=== PATIENT | male | born 1980 | race Caucasian/White ===

== ENCOUNTER 2024-09-02 20:00 | Emergency (ER) | payer OTHER ==
[~2024-09-02] VITALS: Ht 170.2 cm; Wt 61.2 kg
[2024-09-02] MEDS ORDERED: CEFTRIAXONE /D5W 50ML IVPB **ER PYXIS IV ONE (23:05)
[2024-09-02 23:17] LABS: BASOPHILS # (AUTO) 0.1 K/UL (0.0-0.2); BASOPHILS % (AUTO) 0.6 % (0.0-2.0); EOSINOPHILS # (AUTO) 0.2 K/uL (0.0-0.7); EOSINOPHILS % (AUTO) 1.6 % (0.0-7.0); HEMATOCRIT 44.1 % (36.7-47.1); LYMPHOCYTES # (AUTO) 1.8 K/uL (0.8-4.8); LYMPHOCYTES % (AUTO) 13.7 % (20.5-51.5); MEAN CORPUSCULAR HEMOGLOBIN 31.1 uug (23.8-33.4); MEAN CORPUSCULAR HGB CONC 34 g/dL (32.5-36.3); MEAN CORPUSCULAR VOLUME 91.6 fL (73.0-96.2); MONOCYTES % (AUTO) 7.5 % (0.0-11.0); NEUTROPHILS # (AUTO) 9.9 K/uL (1.8-8.9); NEUTROPHILS % (AUTO) 76.6 % (38.5-71.5); PLATELET COUNT (AUTO) 203 K/uL (152-348); RED BLOOD CELL COUNT(AUTO) 4.81 MIL/uL (4.06-5.63); RED CELL DISTRIBUTION WIDTH 14.6 % (12.1-16.2); WHITE BLOOD COUNT (AUTO) 12.9 K/uL (3.6-10.2)
[2024-09-02] MEDS: CEFTRIAXONE 1 G in IV DEXTROSE 5% 50 ML IV ONE (23:18)
[2024-09-02 23:23] LABS: DIFFERENTIAL COMMENT 1
[2024-09-02 23:25] LABS: CALCIUM 8.7 mg/dL (8.5-10.1); CREATININE 0.7 mg/dL (0.6-1.3); POTASSIUM 3.7 mmol/L (3.5-5.1)
[2024-09-02] MEDS ORDERED: BENZ-13 PO (23:26)
[2024-09-02] MEDS ORDERED: AZIT250T PO (23:26)
[2024-09-02 23:30] LABS: ALBUMIN 3.3 g/dL (3.4-5.0); BILIRUBIN,TOTAL 0.4 mg/dL (0.2-1.0); TOTAL PROTEIN, SERUM 7.5 g/dL (6.4-8.2)
[2024-09-03] MEDS ORDERED: SWABABLE VALVE TRANSFER SET EA MC ONE (00:25)
[2024-09-03] MEDS ORDERED: IV NORMAL SALINE 250 ML IV ONE (00:25)
[2024-09-03] MEDS ORDERED: IOHEXOL 300MG/ML 100 ML INFUS..BTL ONE (00:25)
[2024-09-03] MEDS ORDERED: IBUPROFEN 600 MG TABLET ONE (02:29)
[2024-09-03] MEDS: IBUPROFEN 600 MG TABLET PO ONE (02:32)
[2024-09-03 03:05] VITALS: BP 123/72; TEMP 99.9; O2SAT 99
== END 2024-09-03 03:05 | disposition home or self-care (01) ==
LOC: ER 20:00
DX: J18.9 Pneumonia, unspecified organism (principal); F17.200 Nicotine dependence, unspecified, uncomplicated; Z20.822 Contact with and (suspected) exposure to COVID-19
CPT/HCPCS: 99285; 96365; 71045; 87426; 80053; 85025; 87040; 36415; 83605; 71260; J0696; Q9967; A4606; A4663

== ENCOUNTER 2024-09-06 11:24 | Emergency (ER) | payer OTHER ==
[~2024-09-06] VITALS: Ht 170.2 cm; Wt 59.9 kg
[~2024-09-06 11:24] MED LIST: AZIT250T PO; BENZ-13 PO
[2024-09-06 12:24] LABS: BASOPHILS # (AUTO) 0.1 K/UL (0.0-0.2); BASOPHILS % (AUTO) 0.7 % (0.0-2.0); DIFFERENTIAL COMMENT 1; EOSINOPHILS # (AUTO) 0.5 K/uL (0.0-0.7); EOSINOPHILS % (AUTO) 3.8 % (0.0-7.0); HEMATOCRIT 43.7 % (36.7-47.1); HEMOGLOBIN 14.9 g/dL (12.5-16.3); LYMPHOCYTES # (AUTO) 1.2 K/uL (0.8-4.8); LYMPHOCYTES % (AUTO) 8.1 % (20.5-51.5); MEAN CORPUSCULAR HEMOGLOBIN 30.9 uug (23.8-33.4); MEAN CORPUSCULAR HGB CONC 34 g/dL (32.5-36.3); MEAN CORPUSCULAR VOLUME 90.7 fL (73.0-96.2); MONOCYTES # (AUTO) 1.5 K/uL (0.1-1.30); MONOCYTES % (AUTO) 10.4 % (0.0-11.0); NEUTROPHILS # (AUTO) 11.1 K/uL (1.8-8.9); PLATELET COUNT (AUTO) 315 K/uL (152-348); RED BLOOD CELL COUNT(AUTO) 4.81 MIL/uL (4.06-5.63); RED CELL DISTRIBUTION WIDTH 14.5 % (12.1-16.2); WHITE BLOOD COUNT (AUTO) 14.4 K/uL (3.6-10.2)
[2024-09-06 12:32] LABS: CALCIUM 8.6 mg/dL (8.5-10.1); CARBON DIOXIDE 25 mmol/L (21-32); CHLORIDE 98 mmol/L (98-107); CREATININE 0.7 mg/dL (0.6-1.3); GLUCOSE 130 mg/dL (74-106); POTASSIUM 3.3 mmol/L (3.5-5.1); SODIUM SERUM 134 mmol/L (136-145); UREA NITROGEN, BLOOD 8 mg/dL (7-18)
[2024-09-06 12:45] LABS: ALANINE AMINOTRANSFERASE 63 U/L (16-63); ALBUMIN 2.7 g/dL (3.4-5.0); ALKALINE PHOSPHATASE 131 U/L (50-136); ASPARTATE AMINOTRANSFERASE 40 U/L (15-37); BILIRUBIN,DIRECT 0.2 mg/dL (0.0-0.2); BILIRUBIN,TOTAL 0.5 mg/dL (0.2-1.0); NT-PRO BNP 97 pg/mL (0-125); TOTAL PROTEIN, SERUM 7.3 g/dL (6.4-8.2)
[2024-09-06] MEDS: CLINDAMYCIN PHOSPHATE IV 600 MG in IV DEXTROSE 5% 100 ML IV ONE (13:14)
[2024-09-06] MEDS ORDERED: levoFLOXacin 750 MG TABLET ONE (13:36)
[2024-09-06] MEDS: IV NORMAL SALINE 1000 ML BAG IV ONE (13:38)
[2024-09-06] MEDS: levoFLOXacin 750 MG TABLET PO ONE (13:38)
[2024-09-06] MEDS ORDERED: CLINDAMYCIN 600 MG PIGGYBACK**ER OMNI IV ONE (13:41)
[2024-09-06 16:00] VITALS: O2SAT 95
== END 2024-09-06 18:54 | disposition hospice, inpatient (51) ==
LOC: ER 11:24
DX: J18.9 Pneumonia, unspecified organism (principal); F17.200 Nicotine dependence, unspecified, uncomplicated; Z20.822 Contact with and (suspected) exposure to COVID-19
CPT/HCPCS: 99285; 96365; 71045; 87426; 80076; 80048; 83880; 85025; 85730; 87040 ×2; 84484; 36415; 93005; 83605; J3490 ×2; J7040; A4606; A4663